=== PATIENT | male | born 1945 | race Caucasian/White ===

== ENCOUNTER 2024-02-22 19:18 | Emergency (ER) | payer MEDICARE, OTHER, SELFPAY ==
--- NOTE | ~2024-02-22 | CT_ITS ---
EXAMINATION: CT brain wo con DATE: 02/22/2024 20:08 INDICATION: Fall with head injury TECHNIQUE: Computed tomography (CT) of the head was performed without intravenous contrast. Sagittal and coronal reconstructions were performed. The mA was adjusted according to patient size. Iterative reconstruction technique was employed. The dose-length product was 605.33 mGy-cm. COMPARISON: None FINDINGS: Left frontal scalp hematoma. No fracture. No acute intracranial hemorrhage, acute infarction or abnor mal extra axial fluid collection. There is mild scattered white matter hypoattenuation consistent wit h chronic small vessel ischemic disease. Symmetric prominence of the sulci consistent with mild age-a ppropriate diffuse cerebral volume loss. Ventricles are normal and symmetric. No mass/mass effect. Ch anges of bilateral intraocular lens replacement. The orbits and mastoid air cells are normal. Mucosal thickening the bilateral frontal and ethmoid sinuses. IMPRESSION: 1. Age-related changes in the brain. No fracture or acute intracranial process. Reviewed, dictated and finalized at location A.
--- NOTE | ~2024-02-22 | CT_ITS ---
EXAMINATION: CT cervical spine wo con DATE: 02/22/2024 20:08 INDICATION: Fall with head injury TECHNIQUE: Computed tomography (CT) of the cervical spine was performed without intravenous contrast. Automated exposure control and iterative reconstruction technique were employed. The dose-length pro duct was 203.38 mGy-cm. COMPARISON: None FINDINGS: 15 degrees cervical levocurvature. Straightening of the normal cervical lordosis. 3 if a 4 mm anterol isthesis C2 on C3 and 2 mm anterolisthesis C7 on T1. Vertebral body heights are normal. No fracture. Severe atlantoaxial osteoarthritis. Severe disc height loss at C5-C6 and C6-C7. Moderate disc height loss at remaining cervical levels and mild disc height loss at C7-T1. There is mild to moderate centr al canal stenosis resulting from a posterior disc osteophyte complex at T5 C6. Mild central canal randall nosis at a few additional cervical levels. There is bilateral moderate to severe right-side predomina nt cervical uncovertebral and facet osteoarthritis. This contributes to multilevel cervical neural fo raminal stenosis, moderate severity on the right at C3-C4 and mild throughout the remainder of the ce rvical spine. Small amount of atherosclerotic calcific a cyst at the bilateral carotid arteries. Cerv ical soft tissues are unremarkable. Visualized apices of lungs are clear. IMPRESSION: 1. Severe cervical spondylosis with no acute osseous abnormality. Reviewed, dictated and finalized at location A.
[2024-02-22 19:19] VITALS: BP 144/80; PULSE 72; RESP 12; TEMP 37; O2SAT 97
--- NOTE | 2024-02-22 19:45 | ED.FALL ---
HPI - Fall General Chief Complaint: Fall Stated Complaint: UNWITTNESSED GLF, HEMATOMA ABOVE LEFT EYE Time Seen by Provider: 02/22/24 19:30 History of Present Illness HPI Narrative: Patient is an 79-year-old male who presents to the emergency department this evening status post a that was unwitnessed at his [facility]. Patient is normally alert and oriented x1, however, for me today he has been alert and oriented times 2-3. Patient states that he remembers the whole thing was walking was trying to get over a step when he tripped and fell. Patient did fall forward and sustained a left forehead hematoma. Patient denies any loss of consciousness and states that he remembers the full event. Patient ambulates using a cane and/or a walker. He denies any hip pain, any neck or back pain. No additional symptoms or concerns at this time. Review of Systems Review of Systems: All systems are reviewed and are negative unless stated otherwise in the HPI. Exam Narrative: General: Alert, awake, afebrile, in no acute distress. HEENT: PERRL, no rhinorrhea, no post nasal drip, oropharynx clear, left forehead hematoma with overlying abrasion, no raccoon eyes, no de la torre sign. Cardiovascular: Regular rate and rhythm, no murmurs, rubs or gallops, no peripheral edema. Respiratory: Clear to auscultation bilaterally, no tachypnea, no wheezing, no rhonchi, no rubs, no respiratory distress. Abdomen: Soft, nontender, nondistended, no rebound, no guarding, no peritoneal signs. Musculoskeletal: No joint swelling or deformity, normal muscle tone, intact bilateral lower extremity hip flexion and extensions. Back: No midline tenderness to palpation over the cervical, thoracic or lumbar spine, no step-offs or deformities. Skin: No rashes or petechia, no signs of infection. Psychiatric: Alert and oriented, normal behavior and judgment for situation. Neurological: Alert and oriented to person, place, and time. Follows all commands. No focal deficits, speech is clear and fluent. Course Vital Signs Vital signs: Vital Signs Temperature 98.6 F 02/22/24 19:19 Pulse Rate 72 02/22/24 19:19 Respiratory Rate 12 02/22/24 19:19 Blood Pressure 144/80 H 02/22/24 19:19 Pulse Oximetry 97 02/22/24 19:19 Oxygen Delivery Room Air 02/22/24 19:19 Temperature 98.6 F 02/22/24 19:19 Pulse Rate 72 02/22/24 19:19 Respiratory Rate 12 02/22/24 19:19 Blood Pressure 144/80 H 02/22/24 19:19 Pulse Oximetry 97 02/22/24 19:19 Oxygen Delivery Room Air 02/22/24 19:19 MDM - Fall MDM Narrative Medical decision making narrative: The patient was evaluated by myself in the emergency department. History is obtained from patient who is an independent historian and physical exam was performed. External medical records were reviewed at this time. Imaging studies obtained included CT brain cervical spine without IV contrast which was independently interpreted by me revealing no acute process, which is pending final radiology interpretation. Differential diagnosis considerations include fractures, dislocations and intracranial hemorrhage. Comorbidities impacting this visit include none. I have evaluated and discussed social determinants of health with the patient that could potentially impact subsequent diagnosis and treatment plans. On repeat assessment of the patient, reevaluation revealed that the patient is doing well and is in no acute distress. Patient symptoms have remained stable since he arrived to our emergency department. Repeat vital signs were all reviewed and noted to be stable. Differential diagnosis and treatment plan were discussed with the patient at bedside. Patient agrees with discussion and after shared medical decision making agrees with discharge. All questions were answered to the patient's satisfaction. Patient will follow up with his PCP in 3-5 days. Patient was provided with strict return precautions and instructed to
[2024-02-22 21:23] VITALS: BP 128/70; PULSE 71; RESP 16; O2SAT 97
[2024-02-22 23:19] VITALS: BP 120/74; PULSE 63; RESP 14; O2SAT 96
== END 2024-02-23 00:10 ==
PROVIDERS: Emergency Provider Emergency Medicine
DX: S09.90XA Unspecified injury of head, initial encounter (principal); W18.30XA Fall on same level, unspecified, initial encounter
CPT/HCPCS: 70450; 72125; 99284

== ENCOUNTER 2024-02-25 15:10 | Emergency (ER) | payer MEDICARE, OTHER, SELFPAY ==
--- NOTE | ~2024-02-25 | CT_ITS ---
EXAMINATION: CT brain wo con DATE: 02/25/2024 17:07 INDICATION: Mental status change TECHNIQUE: Computed tomography (CT) of the head was performed without intravenous contrast. Sagittal and coronal reconstructions were performed. The mA was adjusted according to patient size. Iterative reconstruction technique was employed. The dose-length product was 605.33 mGy-cm. COMPARISON: 02/22/2024 FINDINGS: The prior small left frontal scalp hematoma has decreased in size and also appears to have shifted sl ightly more caudally along the bridge of the nose. No fracture. No acute intracranial hemorrhage, acu te infarction or abnormal extra axial fluid collection. There is mild scattered white matter hypoatte nuation consistent with chronic small vessel ischemic disease. Symmetric prominence of the sulci cons istent with mild age-appropriate diffuse cerebral volume loss. Ventricles are normal and symmetric. N o mass/mass effect. Changes of bilateral intraocular lens replacement. The orbits and mastoid air shamar ls are normal. Mucosal thickening the bilateral frontal and ethmoid sinuses. IMPRESSION: 1. No acute intracranial process. 2. Age-related changes including mild diffuse volume loss and mild scattered white matter hypoattenua tion consistent with chronic small vessel ischemic disease. Reviewed, dictated and finalized at location A. IMPRESSION: 1. No acute intracranial process. 2. Age-related changes including mild diffuse volume loss and mild scattered wh ite matter hypoattenuation consistent with chronic small vessel ischemic diseas e.
[2024-02-25 15:07] VITALS: BP 107/70; PULSE 72; RESP 20; TEMP 37.2; O2SAT 96
[2024-02-25 16:27] LABS: Basophils Percent Auto 0.4 % (0.2-1.2); Eosinophils Percent Auto 0.4 % (0-4.4); Hematocrit 36.1 % (42.0-52.0); Hemoglobin 11.9 g/dL (14.0-18.0); Immature Granulocyte Absolute 0.03 K/mm3 (0.00-0.031); Immature Granulocyte Percent A 0.4 % (0-0.5); Lymphocytes Absolute Auto 0.79 K/mm3 (0.9-3.2); Lymphocytes Percent Auto 9.5 % (18.3-44.2); Mean Corpuscular Hemoglobin 31.6 pg (26-34); Mean Platelet Volume 9.8 fl (7.4-10.4); Monocytes Absolute Auto 0.9 K/mm3 (0.1-0.6); Monocytes Percent Auto 10.7 % (2.6-8.5); Neutrophils Absolute Auto 6.6 K/mm3 (1.3-6.7); Neutrophils Percent Auto 78.6 % (45.5-73.1); Platelet Count Result 206 k/mm3 (150-375); Red Blood Count 3.76 M/mm3 (4.6-6.20); Red Cell Distribution Width 13.7 % (11.5-14.5); White Blood Count 8.3 K/mm3 (4.5-10.0)
[2024-02-25 16:30] VITALS: BP 135/70; PULSE 57; RESP 15; O2SAT 99
[2024-02-25 16:37] LABS: INR 1.1; Prothrombin Time 14.2 Seconds (11.1-14.7)
[2024-02-25 16:38] LABS: Appearance Urine Clear (Clear); Bacteria Urine None Seen /hpf; Bilirubin Urine Negative (Negative); Blood Urine 2+ (Negative); Color Urine Dark Yellow (Yellow); Glucose Urine UA Negative (Negative); Ketones Urine 1+ mg/dL (Negative); Leukocyte Esterase Ur Negative LEU/UL (Negative); Need Manual Microscopic Reviewed; Nitrate Urine Negative (Negative); Non Pathogenic Casts 0-2; Protein Urine 1+ mg/dL (Negative); RBC Urine 51-100 /hpf (0-2); Squamous Epithelial Cell Urine None Seen /hpf (Few); WBC Urine 0-5 /hpf (0-3); pH Urine 5.5 (5.0-9.0)
[2024-02-25 16:38] LABS: Alanine Aminotransferase 13 U/L (6-50); Alkaline Phosphatase 65 U/L (38-126); Anion Gap 6 mmol/L (4-12); Aspartate Amino Transferase 41 U/L (17-59); Bilirubin,Total 1.1 mg/dL (0.2-1.3); Blood Urea Nitrogen 29 mg/dL (9-20); Calcium 9.1 mg/dL (8.4-10.2); Carbon Dioxide 28 mmol/L (22-30); Chloride 108 mmol/L (98-107); Estimated Glomerular Filt Rate > 60; Glucose 119 mg/dL (65-110); Potassium 3.3 mmol/L (3.4-5.0); Sodium 142 mmol/L (137-145)
[2024-02-25 16:39] LABS: Add Urine Microscopic? YES; Specific Grav Ur 1.033 (1.001-1.035)
--- NOTE | 2024-02-25 17:34 | ED.AMS ---
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 As per the sister patient was admitted to memory care center 5 days ago since stand he has been progressively declining. He well at the [facility] on the same night was brought to the ER had a CT scan however since this morning the nurse who is taking care of for told the family that his heart rate was high and he has been hallucinating. Sister also mention from the time he was admitted to the facility he has progressive decline in his physical condition he is no longer able to walk without falls. Not much of history can be obtained from the patient. MD complaint: altered mental status Timing confirmed by: family member Severity: mild Context: other (Dementia) Review of Systems Review of Systems: ROS unobtainable: Yes unobtainable due to medical condition Exam Narrative: GENERAL: ill-appearing, well-nourished, and in no acute distress. HEAD: Normocephalic, atraumatic. Or laceration on the forehead EYES: PERRLA ENT: Nares clear, no rhinorrhea or epistaxis. Mucous membranes moist. NECK: Supple. CHEST: Clear to auscultation. No respiratory distress. HEART: Regular rate and rhythm. No murmur heard. Normal peripheral pulses. ABDOMEN: Soft, nontender, nondistended, normal active bowel sounds. EXTREMITIES: Normal range of motion. No edema. SKIN: Warm, dry, no rash. NEURO: No focal deficits. Alert . PSYCH: Normal mood and affect. Course Course Emergency Course: I had a long discussion with the sister was at bedside about his lab work, CT scan. All boys declined most likely is from dementia. Vital Signs Vital signs: Vital Signs Temperature 37.2 C 02/25/24 15:07 Pulse Rate 72 02/25/24 15:07 Respiratory Rate 20 02/25/24 15:07 Blood Pressure 107/70 02/25/24 15:07 Pulse Oximetry 96 02/25/24 15:07 Oxygen Delivery Room Air 02/25/24 15:07 Temperature 37.2 C 02/25/24 15:07 Pulse Rate 57 L 02/25/24 16:30 Respiratory Rate 15 02/25/24 16:30 Blood Pressure 135/70 02/25/24 16:30 Pulse Oximetry 99 02/25/24 16:30 Oxygen Delivery Room Air 02/25/24 15:43 MDM - Altered Mental Status Differential Diagnosis Differential diagnosis: Likely altered mental status, dementia, hyponatremia and subarachnoid hemorrhage Medical Records Attestation: I reviewed the patient's medical records. Lab Data Attestation: I reviewed the patient's lab results. 02/25/24 16:13 02/25/24 16:13 Labs: Lab Results 02/25/24 02/25/24 Range/Units 16:13 16:16 WBC 8.3 (4.5-10.0) K/mm3 RBC 3.76 L (4.6-6.20) M/mm3 Hgb 11.9 L (14.0-18.0) g/dL Hct 36.1 L (42.0-52.0) % MCV 96.0 (80-100) fl MCH 31.6 (26-34) pg MCHC 33.0 (32-36) g/dl RDW 13.7 (11.5-14.5) % Plt Count 206 (150-375) k/mm3 MPV 9.8 (7.4-10.4) fl Immature Gran % (Auto) 0.4 (0-0.5) % Neut % (Auto) 78.6 H (45.5-73.1) % Lymph % (Auto) 9.5 L (18.3-44.2) % [place] % (Auto) 10.7 H (2.6-8.5) % Eos % (Auto) 0.4 (0-4.4) % Baso % (Auto) 0.4 (0.2-1.2) % Lymph # (Auto) 0.79 L (0.9-3.2) K/mm3 [place] # (Auto) 0.9 H (0.1-0.6) K/mm3 Eos # (Auto) 0.0 (0-0.3) K/mm3 Baso # (Auto) 0.0 (0.0-0.1) K/mm3 Abs Immat Gran (auto) 0.03 (0.00-0.031) K/mm3 Absolute Neuts (auto) 6.6 (1.3-6.7) K/mm3 Absolute Nucleated RBC 0.000 (0.0-0.012) K/mm3 Nucleated RBC % 0.0 (0.0-0.2) % PT 14.2 (11.1-14.7) Seconds INR 1.1 Sodium 142 (137-145) mmol/L Potassium 3.3 L (3.4-5.0) mmol/L Chloride 108 H (98-107) mmol/L Carbon Dioxide 28 (22-30) mmol/L Anion Gap 6 (4-12)
[2024-02-25 17:39] VITALS: BP 125/63; PULSE 54; RESP 16; O2SAT 98
[2024-02-25 17:49] VITALS: BP 125/82; PULSE 54; RESP 18; O2SAT 98
== END 2024-02-25 18:39 ==
PROVIDERS: Emergency Provider Family Medicine
DX: R41.82 Altered mental status, unspecified (principal); F03.90 Unspecified dementia, unspecified severity, without behavioral disturbance, psychotic disturbance, mood disturbance, and anxiety
CPT/HCPCS: 36415; 70450; 80053; 81001; 83605; 85025; 85610; 99284

== ENCOUNTER 2024-03-21 06:57 | Emergency (ER) | payer MEDICARE, SELFPAY ==
[2024-03-21 06:59] VITALS: BP 148/89; PULSE 69; RESP 17; TEMP 37.1; O2SAT 100
[2024-03-21 07:03] VITALS: PULSE 72
--- NOTE | 2024-03-21 07:23 | ED.GENADULT ---
HPI - General Adult General Chief complaint: Unspecified Stated complaint: NOT SLEEPING History of Present Illness HPI narrative: 79-year-old male present to the ED for evaluation for impaired sleeping. Patient states he has had longstanding issues with poor sleeping. Patient was recently started on trazodone to help with this and has not been helping. Patient denies any other complaints. Related Data Allergies Allergy/AdvReac Type Severity Reaction Status Date / Time No Known Allergies Allergy Verified 03/21/24 07:07 Review of Systems Review of Systems: All systems reviewed & are unremarkable except as noted in HPI and below Exam Narrative: APPEARANCE: Well appearing, no pain, no distress, well-nourished. HEAD: normocephalic, atraumatic. EYES: PERRLA/EOMI, conjunctivae clear. NOSE: Normal no drainage EARS:TMS clear with good light reflex. THROAT: Pharynx clear, no exudate. NECK: Supple. No adenopathy, no masses. RESPIRATORY: Airway patent, respirations nonlabored. Clear to auscultation bilaterally, no rales, rhonchi, wheezing. CARDIOVASCULAR: Regular rate and rhythm without murmurs rubs or gallops. ABDOMINAL: Soft, nontender, nondistended, normal bowel sounds MUSCULOSKELETAL: Moves all extremities. Strength/ROM intact, No edema, No calf tenderness. NEURO: Alert. Cranial nerves II through XII intact. Grossly intact SKIN: Multiple abrasions Course Course Emergency Course: Patient was discharged back to his care facility. Vital Signs Vital signs: Vital Signs Temperature 98.8 F 03/21/24 06:59 Pulse Rate 69 03/21/24 06:59 Respiratory Rate 17 03/21/24 06:59 Blood Pressure 148/89 H 03/21/24 06:59 Pulse Oximetry 100 03/21/24 06:59 Oxygen Delivery Room Air 03/21/24 06:59 Temperature 98.8 F 03/21/24 06:59 Pulse Rate 71 03/21/24 12:10 Respiratory Rate 18 03/21/24 12:10 Blood Pressure 186/79 H 03/21/24 12:10 Pulse Oximetry 96 03/21/24 12:10 Oxygen Delivery Room Air 03/21/24 06:59 Medical Decision Making [facility] Narrative Medical decision making narrative: 79-year-old male presenting to the emergency department for evaluation for inability to sleep. Patient is afebrile with no leukocytosis and a stable hemoglobin of 12.6. No acute abnormalities of the patient's CMP of normal lactic acid. UA does have some markers for urinary tract infection. Patient will have a urine culture ordered and patient will be treated with antibiotics for possible underlying urinary tract infection. Patient was encouraged to have close follow-up with his primary care physician and with Neurology regarding his difficulty sleeping. Patient did sleep while in emergency department. Differential Diagnosis Differential Diagnosis: UTI, COVID, RSV, influenza Vital Signs Vital Signs: Vital Signs Temperature 98.8 F 03/21/24 06:59 Pulse Rate 69 03/21/24 06:59 Respiratory Rate 17 03/21/24 06:59 Blood Pressure 148/89 H 03/21/24 06:59 Pulse Oximetry 100 03/21/24 06:59 Oxygen Delivery Room Air 03/21/24 06:59 Temperature 98.8 F 03/21/24 06:59 Pulse Rate 71 03/21/24 12:10 Respiratory Rate 18 03/21/24 12:10 Blood Pressure 186/79 H 03/21/24 12:10 Pulse Oximetry 96 03/21/24 12:10 Oxygen Delivery Room Air 03/21/24 06:59 Lab Data Lab results reviewed: Yes I reviewed the patient's lab results. 03/21/24 07:35 03/21/24 07:35 Labs: Lab Results 03/21/24 03/21/24 Range/Units 07:35 07:52 WBC 7.4 (4.5-10.0) K/mm3 RBC 3.96 L (4.6-6.20) M/mm3 Hgb 12.6 L (14.0-18.0) g/dL Hct 38.8 L (42.0-52.0) % MCV 98.0 (80-100) fl MCH 31.8 (26-34) pg MCHC 32.5 (32-36) g/dl RDW 13.9 (11.5-14.5) % Plt Count 232 (150-375) k/mm3 MPV 9.2 (7.4-10.4) fl Immature Gran % (Auto) 0.3 (0-0.5) % Neut % (Auto) 74.4 H (45.5-73.1) % Lymph % (Auto) 12.5 L (18.3-44.2) % [place] % (Auto) 11.5 H (2.6-8.5) % E
[2024-03-21 07:42] LABS: Basophils Percent Auto 0.5 % (0.2-1.2); Eosinophils Absolute Auto 0.1 K/mm3 (0-0.3); Eosinophils Percent Auto 0.8 % (0-4.4); Hematocrit 38.8 % (42.0-52.0); Hemoglobin 12.6 g/dL (14.0-18.0); Immature Granulocyte Absolute 0.02 K/mm3 (0.00-0.031); Immature Granulocyte Percent A 0.3 % (0-0.5); Lymphocytes Absolute Auto 0.92 K/mm3 (0.9-3.2); Lymphocytes Percent Auto 12.5 % (18.3-44.2); Mean Corpuscular HGB Conc 32.5 g/dl (32-36); Mean Corpuscular Hemoglobin 31.8 pg (26-34); Mean Platelet Volume 9.2 fl (7.4-10.4); Monocytes Absolute Auto 0.9 K/mm3 (0.1-0.6); Monocytes Percent Auto 11.5 % (2.6-8.5); Neutrophils Absolute Auto 5.5 K/mm3 (1.3-6.7); Neutrophils Percent Auto 74.4 % (45.5-73.1); Platelet Count Result 232 k/mm3 (150-375); Red Blood Count 3.96 M/mm3 (4.6-6.20); Red Cell Distribution Width 13.9 % (11.5-14.5); White Blood Count 7.4 K/mm3 (4.5-10.0)
[2024-03-21 07:56] LABS: Lactic Acid Reflex 0.7 mmol/L (0.7-2.0)
[2024-03-21 07:58] LABS: Alanine Aminotransferase 13 U/L (6-50); Alkaline Phosphatase 64 U/L (38-126); Anion Gap 7 mmol/L (4-12); Aspartate Amino Transferase 28 U/L (17-59); Blood Urea Nitrogen 23 mg/dL (9-20); Carbon Dioxide 27 mmol/L (22-30); Chloride 110 mmol/L (98-107); Estimated CRCL calculation 68 ml/min; Estimated Glomerular Filt Rate > 60; Glucose 96 mg/dL (65-110); Potassium 3.7 mmol/L (3.4-5.0); Sodium 144 mmol/L (137-145)
[2024-03-21 08:15] VITALS: BP 147/76; PULSE 86; RESP 17; O2SAT 99
[2024-03-21 08:28] LABS: Appearance Urine Clear (Clear); Bacteria Urine None Seen /hpf; Bilirubin Urine Negative (Negative); Blood Urine 1+ (Negative); Color Urine Yellow (Yellow); Glucose Urine UA Negative (Negative); Ketones Urine Trace mg/dL (Negative); Leukocyte Esterase Ur Trace LEU/UL (Negative); Need Manual Microscopic Reviewed; Nitrate Urine Negative (Negative); Protein Urine Trace mg/dL (Negative); Specific Grav Ur 1.024 (1.001-1.035); Squamous Epithelial Cell Urine None Seen /hpf (Few)
[2024-03-21 08:32] LABS: Add Urine Microscopic? YES
--- NOTE | 2024-03-21 09:01 | PC.NURSE ---
0900 attempted to call report to [facility].
--- NOTE | 2024-03-21 09:13 | PC.NURSE ---
0910 Report called to ROD Osman at [facility].
[2024-03-21 12:10] VITALS: BP 186/79; PULSE 71; RESP 18; O2SAT 96
== END 2024-03-21 12:13 ==
PROVIDERS: Emergency Provider Emergency Medicine
DX: G47.9 Sleep disorder, unspecified (principal); N39.0 Urinary tract infection, site not specified; G31.83 Neurocognitive disorder with Lewy bodies; F02.80 Dementia in other diseases classified elsewhere, unspecified severity, without behavioral disturbance, psychotic disturbance, mood disturbance, and anxiety
CPT/HCPCS: 36415; 80053; 81001; 83605; 85025; 87086; 87088; 96365; 99284; J0696

== ENCOUNTER 2024-03-21 20:14 | Emergency (ER) | payer MEDICARE, OTHER, SELFPAY ==
[2024-03-21] VITALS (12 sets, daily range): BP systolic 119–128; BP diastolic 57–93; PULSE 62–82; RESP 12–21; TEMP 37.5; O2SAT 95–100
--- NOTE | ~2024-03-21 | XR_ITS ---
EXAMINATION: XR chest 1V portable Exam Date/Time: 03/21/2024 20:40 CDT HISTORY: fever WITH UTI Comparison: None. RESULT: Lines, tubes, and devices: Thin wires over the upper chest possibly representing a abandoned epicard ial wires. Lungs and pleura: Senescent change, otherwise clear. Cardiomediastinal silhouette: Atherosclerotic arch calcification. Calcified nodes. Other: No acute osseous or upper abdominal finding. IMPRESSION: No acute cardiopulmonary process. Reviewed, dictated and finalized at location K.
[2024-03-21] MEDS: SODIUM CHLORIDE 0.9% IV 1,000 ML 150 ML IV CONT (20:48)
--- NOTE | 2024-03-21 20:51 | PC.NURSE ---
vrbo ivp ativan 0.5mg x 1
[2024-03-21 20:52] LABS: Basophils Percent Auto 0.3 % (0.2-1.2); Eosinophils Percent Auto 0.3 % (0-4.4); Hematocrit 36.2 % (42.0-52.0); Hemoglobin 12.1 g/dL (14.0-18.0); Immature Granulocyte Absolute 0.02 K/mm3 (0.00-0.031); Immature Granulocyte Percent A 0.3 % (0-0.5); Lymphocytes Absolute Auto 0.68 K/mm3 (0.9-3.2); Lymphocytes Percent Auto 10.1 % (18.3-44.2); Mean Corpuscular HGB Conc 33.4 g/dl (32-36); Mean Corpuscular Volume 95.8 fl (80-100); Mean Platelet Volume 9.4 fl (7.4-10.4); Monocytes Absolute Auto 0.7 K/mm3 (0.1-0.6); Neutrophils Absolute Auto 5.2 K/mm3 (1.3-6.7); Platelet Count Result 234 k/mm3 (150-375); Red Blood Count 3.78 M/mm3 (4.6-6.20); White Blood Count 6.7 K/mm3 (4.5-10.0)
[2024-03-21] MEDS: LORazepam INJ (*CRX) 2 MG/ML VIAL 0.5 MG IV PUSH (20:53)
[2024-03-21 21:01] LABS: Alanine Aminotransferase 14 U/L (6-50); Albumin Level 4.1 g/dL (3.5-5.1); Alkaline Phosphatase 65 U/L (38-126); Anion Gap 9 mmol/L (4-12); Aspartate Amino Transferase 29 U/L (17-59); Blood Urea Nitrogen 22 mg/dL (9-20); Calcium 9.2 mg/dL (8.4-10.2); Carbon Dioxide 26 mmol/L (22-30); Chloride 109 mmol/L (98-107); Estimated CRCL calculation 69 ml/min; Estimated Glomerular Filt Rate > 60; Glucose 103 mg/dL (65-110); Potassium 3.3 mmol/L (3.4-5.0); Sodium 144 mmol/L (137-145)
--- NOTE | 2024-03-21 21:39 | ED.FEVER ---
HPI - Fever General Chief Complaint: Fever Stated Complaint: dx UTI 03/21, NOW SEPTIC PER [facility] Time Seen by Provider: 03/21/24 20:30 Source: EMS and RN notes reviewed Mode of arrival: EMS Limitations: dementia History of Present Illness HPI Narrative: 79-year-old with a history of dementia [facility] with complaints of fever of 101. Patient was seen earlier discharge and discharged gastric urinary tract infection he was started on Keflex. Not much of history can be obtained from the patient secondary to his dementia. MD elicited complaint: fever Relieving factors: nothing Related Data Allergies Allergy/AdvReac Type Severity Reaction Status Date / Time No Known Allergies Allergy Verified 03/21/24 07:07 Review of Systems Review of Systems: ROS unobtainable: Yes unobtainable due to mental status Exam Narrative: GENERAL: well-nourished, and in no acute distress. HEAD: Normocephalic, atraumatic. EYES: PERRLA and EOMI. ENT: Nares clear, no rhinorrhea or epistaxis. Mucous membranes moist. NECK: Supple. CHEST: Clear to auscultation. No respiratory distress. HEART: Regular rate and rhythm. No murmur heard. Normal peripheral pulses. ABDOMEN: Soft, nontender, nondistended, normal active bowel sounds. EXTREMITIES: Normal range of motion. No edema. SKIN: Warm, dry, no rash. NEURO: No focal deficits. Alert and oriented X1. PSYCH: Normal mood and affect. Course Course Emergency Course: He Vital Signs Vital signs: Vital Signs Temperature 37.5 C 03/21/24 20:15 Pulse Rate 82 03/21/24 20:15 Respiratory Rate 19 03/21/24 20:15 Blood Pressure 127/57 L 03/21/24 20:15 Pulse Oximetry 99 03/21/24 20:15 Oxygen Delivery Room Air 03/21/24 20:15 Temperature 37.5 C 03/21/24 20:15 Pulse Rate 82 03/21/24 20:15 Respiratory Rate 19 03/21/24 20:15 Blood Pressure 127/57 L 03/21/24 20:15 Pulse Oximetry 99 03/21/24 20:15 Oxygen Delivery Room Air 03/21/24 20:15 MDM - Fever Lab Data 03/21/24 20:40 03/21/24 20:40 Labs: Lab Results 06/18/24 Range/Units 20:40 WBC 6.7 (4.5-10.0) K/mm3 RBC 3.78 L (4.6-6.20) M/mm3 Hgb 12.1 L (14.0-18.0) g/dL Hct 36.2 L (42.0-52.0) % MCV 95.8 (80-100) fl MCH 32.0 (26-34) pg MCHC 33.4 (32-36) g/dl RDW 14.0 (11.5-14.5) % Plt Count 234 (150-375) k/mm3 MPV 9.4 (7.4-10.4) fl Immature Gran % (Auto) 0.3 (0-0.5) % Neut % (Auto) 78.0 H (45.5-73.1) % Lymph % (Auto) 10.1 L (18.3-44.2) % [place] % (Auto) 11.0 H (2.6-8.5) % Eos % (Auto) 0.3 (0-4.4) % Baso % (Auto) 0.3 (0.2-1.2) % Lymph # (Auto) 0.68 L (0.9-3.2) K/mm3 [place] # (Auto) 0.7 H (0.1-0.6) K/mm3 Eos # (Auto) 0.0 (0-0.3) K/mm3 Baso # (Auto) 0.0 (0.0-0.1) K/mm3 Abs Immat Gran (auto) 0.02 (0.00-0.031) K/mm3 Absolute Neuts (auto) 5.2 (1.3-6.7) K/mm3 Absolute Nucleated RBC 0.000 (0.0-0.012) K/mm3 Nucleated RBC % 0.0 (0.0-0.2) % Sodium 144 (137-145) mmol/L Potassium 3.3 L (3.4-5.0) mmol/L Chloride 109 H (98-107) mmol/L Carbon Dioxide 26 (22-30) mmol/L Anion Gap 9 (4-12) mmol/L BUN 22 H (9-20) mg/dL Creatinine 0.70 (0.7-1.3) mg/dL Estim Creat Clear Calc 69 ml/min Estimated GFR > 60 (59 - ) Glucose 103 (65-110) mg/dL Lactic Acid 1.0 (0.7-2.0) mmol/L Calcium 9.2 (8.4-10.2) mg/dL Total Bilirubin 1.0 (0.2-1.3) mg/dL AST 29 (17-59) U/L ALT 14 (6-50) U/L Alkaline Phosphatase 65 (38-126) U/L Total Protein 7.0 (6.3-8.2) g/dL Albumin 4.1 (3.5-5.1) g/dL Discharge Plan Discharge Clinical Impression: Fever of unknown origin Patient Disposition: [facility] Condition: Stable Instructions: Antibiotic Form, Fever in Adults (ED) Additional Instructions: continue home medications, follow with the primary doctor Prescriptions: No Action cephalexin 500 mg tablet 500 mg PO Q12H 7 Days Qty: 14 0RF Follow-up
== END 2024-03-21 22:51 ==
PROVIDERS: Emergency Provider Family Medicine
DX: R50.9 Fever, unspecified (principal); N39.0 Urinary tract infection, site not specified; F03.90 Unspecified dementia, unspecified severity, without behavioral disturbance, psychotic disturbance, mood disturbance, and anxiety
CPT/HCPCS: 36415; 71045; 80053; 81001; 83605; 85025; 87040; 87086; 96361; 96365; 96374; 99284; J0696; J2060; J7030

== ENCOUNTER 2024-03-24 16:51 | Inpatient (IN) | payer MEDICARE, OTHER, SELFPAY ==
[2024-03-24] VITALS (17 sets, daily range): BP systolic 102–195; BP diastolic 62–130; PULSE 53–91; RESP 13–26; TEMP 36.3–37; O2SAT 92–100; BMI 18.3
--- NOTE | ~2024-03-24 | CT_ITS ---
CT brain wo con Ordering provider: Adamaris Flores PA-C History: 79 years Male with . AMS . Comparison: February 25, 2024 Technique: CT of the head without contrast. Radiation reduction technique utilized. DLP is 605.33 mGy. FINDINGS: BRAIN PARENCHYMA AND CSF SPACES: Mild leukoaraiosis and diffuse cortical atrophy. Mild atheromatous d isease. Mild ventricular dilatation. No midline shift, mass effect or hemorrhage. The brain parenchy ma and CSF spaces are otherwise normal. VISUALIZED PARANASAL SINUSES: Well aerated. MASTOIDS: Well aerated. BONES: The bones appear intact. SOFT TISSUES: Visualized nasopharynx is normal. Superficial soft tissues are normal. IMPRESSION: No acute intracranial findings. Reviewed, dictated and finalized at location A.
--- NOTE | ~2024-03-24 | XR_ITS ---
XR chest 1V Ordering provider: Adamaris Flores PA-C History: 79 years Male with . AMS . Comparison: None. FINDINGS: MEDIASTINUM: The cardiac silhouette is not enlarged. Prominent left hilum. LUNGS: No effusions or pneumothorax. Opacification in the right upper lobe area is seen which may ind icate early pneumonia. Atelectasis of the right upper lobe is also not excluded. Follow-up advised. OTHER: No free air under the diaphragm. IMPRESSION: Possible early pneumonia in the right upper lobe Versus atelectasis of the right upper lobe. Follow-u p advised. Reviewed, dictated and finalized at location A. IMPRESSION: Possible early pneumonia in the right upper lobe Versus atelectasis of the righ t upper lobe. Follow-up advised.
--- NOTE | 2024-03-24 18:45 | ECG_ITS ---
Test Date: 2024-03-24 19:46:43 Measurements Intervals [place] Rate: 59 P: 64 VT: 152 QRS: 62 QRSD: 88 T: 23 QT: 331 QTc: 328 Interpretive Statements SINUS BRADYCARDIA WITH FREQUENT VENTRICULAR PREMATURE COMPLEXES ANTEROSEPTAL MYOCARDIAL INFARCTION , OF INDETERMINATE AGE [40+ ms Q WAVE IN V1-V4] ABNORMAL ELECTROCARDIOGRAM No previous ECG available for comparison Electronically Signed On 03-25-2024 07:59:47 CDT by Luc Levin M.D.
--- NOTE | 2024-03-24 18:49 | ED.MALEGU ---
HPI - Male Genitourinary General Chief complaint: Urogenital-Male Stated complaint: UTI/fever/rash Time Seen by Provider: 03/24/24 18:00 History of Present Illness HPI Narrative: 79-year-old male with a history of Lewy body dementia and Parkinson's disease presents via EMS from [facility] with his sister, Ngoc, at bedside for concerns for UTI, sepsis and altered mental status. Patient unable to provide history due to mental status. The following history is obtained from [place]. States the patient was placed at [facility] approximately 1 month ago and since then has had steady decline in mental status. He was evaluated our emergency department on 02/25/2024 for altered mental status and decline since being in the [facility]. Patient was then evaluated on 03/21/2024 for impaired sleeping and was found have a urinary tract infection. He was started on Keflex. He then presented later that day for a fever of 101 and was discharged home after lab work obtained which were largely unremarkable. Patient's sister presents today because she states that nursing staff has repeatedly told her that they were concern for sepsis. States they have encountered low-grade fevers, approximately 100.1. She states that she would like to ensure he is not septic. She also states that he does seems to be declining rapidly, specifically over the past month worsening over the past week. He is unable to tell me his name which the patient's sister states has been normal for him within the past month. She also states that the [facility] told her that the patient has developed a rash to his torso. The patient is unable to tell me if this is new or chronic, she states she never sees him w/o a shirt on. unfortunately, patient's / POA is currently hospitalized at another facility for a hip fracture. Patient's sister states that she has stepped in in place of his in the meantime. Related Data Home Medications Medication Instructions Recorded Confirmed B12 2,500 mcg sublingual DAILY 03/24/24 03/24/24 alprazolam 0.125 mg PO BID PRN Anxiety 03/24/24 03/24/24 donepezil 10 mg tablet 10 mg PO HS 03/24/24 03/24/24 escitalopram oxalate 10 mg tablet 5 mg PO DAILY 03/24/24 03/24/24 olmesartan 20 mg tablet 20 mg PO DAILY 03/24/24 03/24/24 rosuvastatin 5 mg tablet 5 mg PO HS 03/24/24 03/24/24 Allergies Allergy/AdvReac Type Severity Reaction Status Date / Time cephalexin [From Keflex] Allergy Mild Rash Verified 03/24/24 23:41 Review of Systems Review of Systems: ROS unobtainable: Yes unobtainable due to mental status PMFSH Past Medical History Medical History (Updated 03/25/24 @ 02:06 by Rebecca Whelan DO) Anxiety B12 deficiency Essential hypertension Histoplasmosis Hyperlipidemia Lewy body dementia OCD (obsessive compulsive disorder) Parkinsons disease Squamous cell carcinoma Surgical History Surgical History (Updated 03/25/24 @ 01:59 by Rebecca Whelan DO) Surgical history unknown Family History Family History Other Family history non-contributory Social History Social History (Updated 03/25/24 @ 02:10 by Rebecca Whelan DO) Social History: Patient is been living at [facility] since February. Prior to that the patient was reportedly at home with his . The patient cannot provide any other history as he is oriented times 0. Per [facility] records patient is full code. Healthcare power of state's attorney: Atiya Bolden () Smoking status: Unknown if ever smoked Alcohol intake: never Substance use: never Spiritual care concerns: No Exam Narrative: GENERAL: elderly male, responsive to verbal stimuli by moaning. Eyes closed at all times. HEAD: Normocephalic, atraumatic. EYES: PERRLA and EOMI. ENT: Nares clear, no rhinorrhea or epistaxis. Mucous membranes moist. NECK: Supple. CHEST: Clear to auscultation. No respiratory distress. HEA
[2024-03-24 19:36] LABS: Basophils Percent Auto 0.3 % (0.2-1.2); Eosinophils Percent Auto 0.5 % (0-4.4); Hemoglobin 12.8 g/dL (14.0-18.0); Immature Granulocyte Absolute 0.02 K/mm3 (0.00-0.031); Immature Granulocyte Percent A 0.3 % (0-0.5); Lymphocytes Absolute Auto 0.46 K/mm3 (0.9-3.2); Lymphocytes Percent Auto 7.4 % (18.3-44.2); Mean Corpuscular HGB Conc 33.7 g/dl (32-36); Mean Corpuscular Hemoglobin 32.4 pg (26-34); Mean Corpuscular Volume 96.2 fl (80-100); Mean Platelet Volume 9.5 fl (7.4-10.4); Monocytes Absolute Auto 0.7 K/mm3 (0.1-0.6); Monocytes Percent Auto 11.7 % (2.6-8.5); Neutrophils Percent Auto 79.8 % (45.5-73.1); Platelet Count Result 222 k/mm3 (150-375); Red Blood Count 3.95 M/mm3 (4.6-6.20); Red Cell Distribution Width 13.9 % (11.5-14.5); White Blood Count 6.2 K/mm3 (4.5-10.0)
[2024-03-24 19:39] LABS: Glucose Point of Care 119 mg/dl (65-105)
[2024-03-24 19:46] LABS: Lactic Acid Reflex 0.7 mmol/L (0.7-2.0)
[2024-03-24 19:50] LABS: Acetaminophen < 10 ug/mL (10-30); Salicylate < 1.0 mg/dL (2-20)
[2024-03-24 19:51] LABS: Alanine Aminotransferase 21 U/L (6-50); Albumin Level 4.2 g/dL (3.5-5.1); Alkaline Phosphatase 65 U/L (38-126); Anion Gap 5 mmol/L (4-12); Aspartate Amino Transferase 49 U/L (17-59); Bilirubin,Total 1.2 mg/dL (0.2-1.3); Blood Urea Nitrogen 25 mg/dL (9-20); Calcium 9.3 mg/dL (8.4-10.2); Carbon Dioxide 30 mmol/L (22-30); Chloride 108 mmol/L (98-107); Estimated CRCL calculation 47 ml/min; Estimated Glomerular Filt Rate > 60; Glucose 114 mg/dL (65-110); Potassium 3.1 mmol/L (3.4-5.0); Sodium 143 mmol/L (137-145)
[2024-03-24 19:56] LABS: Creatine Kinase 497 U/L (55-170)
--- NOTE | 2024-03-24 20:10 | PC.NURSE ---
this rn assumed care of patient. this rn took patient report from ROD Vega
--- NOTE | 2024-03-24 20:19 | PC.NURSE ---
Upon assessment of patient. Patient had diffuse body bruising in multiple stages of healing. There is concern for patient bruising resembling hand prints. this rn hotlined for patient safety.
[2024-03-24 20:22] LABS: Magnesium 2.2 mg/dL (1.6-2.3); Phosphorus 3.4 mg/dL (2.5-4.5)
[2024-03-24 20:33] LABS: Appearance Urine Cloudy (Clear); Bacteria Urine None Seen /hpf; Bilirubin Urine Negative (Negative); Blood Urine 3+ (Negative); Color Urine Yellow (Yellow); Glucose Urine UA Negative (Negative); Ketones Urine 1+ mg/dL (Negative); Leukocyte Esterase Ur Negative LEU/UL (Negative); Need Manual Microscopic Reviewed; Nitrate Urine Negative (Negative); Non Pathogenic Casts 0-2; Protein Urine Trace mg/dL (Negative); RBC Urine >100 /hpf (0-2); Specific Grav Ur 1.021 (1.001-1.035); Squamous Epithelial Cell Urine None Seen /hpf (Few); pH Urine 6.5 (5.0-9.0)
[2024-03-24 20:34] LABS: Add Urine Microscopic? YES
--- NOTE | 2024-03-24 20:36 | PC.NURSE ---
elder abuse hotline refused to take hotline. they recommended making a report to public safety hotline. this rn attempted to make hotline to public safety. they stated they were unable to make the hotline due to the patient being from an assisted living facility and not a [facility]. Hotline stated to call and make report on Wednesday during business hours.
[2024-03-24] MEDS: POTASSIUM CHLORIDE INJ 40 MEQ in SODIUM CHLORIDE 0.9% IV 500 ML 130 MEQ IVPB (21:20)
[2024-03-24] MEDS: SODIUM CHLORIDE 0.9% IV 1,000 ML 999 ML IV CONT (21:21)
[2024-03-24 21:26] LABS: Amphetamine Screen Urine Negative (Negative); Barbiturate Screen Urine Negative (Negative); Benzodiazepines Screen Urine Negative (Negative); Cannabinoid Screen Urine Negative (Negative); Cocaine Screen Urine Negative (Negative); Methadone Screen Urine Negative (Negative); Opiate Screen Urine Negative (Negative); Phencyclidine Screen Urine Negative (Negative)
[2024-03-24 21:33] LABS: Troponin I 0.023 ng/mL (0.000-0.034)
[2024-03-24] MEDS: LORazepam INJ (*CRX) 2 MG/ML VIAL 1 MG IV PUSH (22:06)
--- NOTE | 2024-03-24 22:28 | PC.NURSE ---
pt attempting to get out of bed multiple times. pt shouting at staff, pt hitting staff, pt also pinching and trying to remove iv access. pt unable to be redirected by this rn. sitter was placed at bedside. per edp beth yarbrough ativan to be given iv push. this rn used closed loop communication to confirm 1mg of ativan to be ordered and given to patient.
[2024-03-24] MEDS: levoFLOXacin 750 MG/D5W 150 ML 750 MG/150 ML BAG 100 MG IVPB (22:30)
[2024-03-24 22:54] LABS: Influenza A QL RT-PCR Negative (Negative); Influenza B QL RT-PCR Negative (Negative); SARS-CoV-2 RNA PCR Negative (Negative)
--- NOTE | 2024-03-24 23:30 | ADMGEN ---
This patient, Zachary Bolden, was admitted to Medical Room 243-01. Patient/family oriented to hospital policies and general routines including ID bracelet, bed and alarms, visiting hours, pain management, procedures, bathroom and other care routines, personal items, smoking policy, room service/diet, and visiting hours. Information on how to activate the Rapid Response Team has been discussed. Patient/Family are encouraged to report perceived risks to care and to ask questions if they do not understand what they are told or what they should do.
[2024-03-25 00:07] VITALS: BP 143/69; PULSE 55; RESP 16; TEMP 36.3; O2SAT 100
--- NOTE | 2024-03-25 01:51 | PM.IMHP ---
H&P: HPI History of Present Illness Date/Time: 03/24/24 23:50 Chief Complaint: AMS Narrative: 79-year-old male with a past medical history of essential hypertension, Lewy body dementia, Parkinson's disease and depression with anxiety who presented to ER via EMS due to [facility] 100.1 at the [facility] and recent treatment for UTI. The patient had been evaluated in the ER on the for insomnia. His urine at that time appeared to be consistent with infection so he was discharged on Keflex. Patient's urine culture later came back as multiple distal urethral contaminant. The [facility] sent the patient back to the ER later in the day with a temperature of 101?. He was discharged back to [facility] without further intervention. senior care staff reported to the patient's sister that the patient was having low-grade temperatures of around 100.1 despite being continued on the Keflex. senior care staff told the sister that they wanted him sent in for evaluation of sepsis. Patient was not tachycardic or tachypneic and has not had a white count. Patient's respiratory viral panel was negative. The patient has not been coughing. The patient does not have any evidence of urinary retention. The patient's sister initially presented with the patient and the stated that the patient had been living at home with his but had a significant decline in his status over the last 2 months. Since [facility] the [facility] over the last 3-4 weeks the patient has had progressive decline in his mental status over the last month but with an acute decline in the last week. He has had markedly decreased oral intake. senior care staff had reported to the family that the patient had a rash on his torso. It is unclear when this rash developed possibly after the initiation of Keflex. The patient does have some abrasions to his lower extremities and appears if he may be scratching. He does have scattered areas of the rash on his forearms and legs are also slightly more difficult to delineate.amily in ER staff were ordered about multiple areas of bruising on the patient's extremities that appear to be consistent with finger marked. In the ER the patient did have times of anxiety and agitation where he was pulling at medical equipment and trying to get up, shouting, pinching and hitting staff. Patient did receive 1 mg of IV Ativan. The patient is fidgeting in bed and restless but is not being disruptive with care at the time of my evaluation. Bruising is mostly on the extremities. Attempts were made to make a report to Adult protective Services but staff was told to call back during normal business hours. According to the ER provider report... The patient's is listed as his healthcare power of assistant county attorney and is currently hospitalized in another medical facility for broken hip. The patient's daughter is listed as a secondary contact but the patient's sister was the person who accompanied patient to the ER. ER provider did discuss goals of care discussion with the patient's sister when she was at bedside. The sister did not feel comfortable making decisions regarding goals of care. Review of Systems Review of Systems: ROS unobtainable: Yes unobtainable due to medical condition (dementia) PMFSH Past Medical History Medical History (Updated 03/25/24 @ 02:32 by Rebecca Whelan DO) Anxiety B12 deficiency Essential hypertension Histoplasmosis Hyperlipidemia Lewy body dementia OCD (obsessive compulsive disorder) Parkinsons disease Squamous cell carcinoma Surgical History Surgical History (Updated 03/25/24 @ 01:59 by Rebecca Whelan DO) Surgical history unknown Family History Family History Other Family history non-contributory Social History Social History (Updated 03/25/24 @ 02:10 by Rebecca Whelan DO) Social History: Patient is been living at [facility] since
[2024-03-25] MEDS: SODIUM CHLORIDE 0.9% IV 1,000 ML 100 ML IV CONT (03:31)
[2024-03-25] MEDS: LORazepam INJ (*CRX) 2 MG/ML VIAL 0.5 MG IV PUSH (03:34)
[2024-03-25 04:58] LABS: Basophils Percent Auto 0.4 % (0.2-1.2); Eosinophils Absolute Auto 0.1 K/mm3 (0-0.3); Hematocrit 35.8 % (42.0-52.0); Hemoglobin 11.5 g/dL (14.0-18.0); Immature Granulocyte Absolute 0.02 K/mm3 (0.00-0.031); Immature Granulocyte Percent A 0.4 % (0-0.5); Lymphocytes Absolute Auto 0.63 K/mm3 (0.9-3.2); Lymphocytes Percent Auto 12.4 % (18.3-44.2); Mean Corpuscular HGB Conc 32.1 g/dl (32-36); Mean Corpuscular Hemoglobin 31.8 pg (26-34); Mean Corpuscular Volume 98.9 fl (80-100); Mean Platelet Volume 9.8 fl (7.4-10.4); Monocytes Absolute Auto 0.8 K/mm3 (0.1-0.6); Monocytes Percent Auto 14.8 % (2.6-8.5); Neutrophils Absolute Auto 3.6 K/mm3 (1.3-6.7); Platelet Count Result 200 k/mm3 (150-375); Red Blood Count 3.62 M/mm3 (4.6-6.20); Red Cell Distribution Width 13.9 % (11.5-14.5); White Blood Count 5.1 K/mm3 (4.5-10.0)
[2024-03-25 05:08] LABS: Anion Gap 3 mmol/L (4-12); Blood Urea Nitrogen 20 mg/dL (9-20); Calcium 8.6 mg/dL (8.4-10.2); Carbon Dioxide 29 mmol/L (22-30); Chloride 112 mmol/L (98-107); Estimated CRCL calculation 63 ml/min; Estimated Glomerular Filt Rate > 60; Glucose 91 mg/dL (65-110); Potassium 3.6 mmol/L (3.4-5.0); Sodium 144 mmol/L (137-145)
[2024-03-25 05:09] VITALS: BP 142/81; PULSE 60; RESP 17; TEMP 36.6; O2SAT 98
--- NOTE | 2024-03-25 07:57 | PM.IMPN ---
Progress Note: A&P Assessment and Plan (1) Dementia: Qualifiers: Dementia behavioral or psychological symptom: without behavioral, psychotic, or mood disturbance or anxiety Dementia severity: severe Dementia type: Lewy body dementia Qualified Code(s): G31.83 - Neurocognitive disorder with Lewy bodies; F02.C0 - Dementia in other diseases classified elsewhere, severe, without behavioral disturbance, psychotic disturbance, mood disturbance, and anxiety Code(s): F03.90 - Unspecified dementia, unspecified severity, without behavioral disturbance, psychotic disturbance, mood disturbance, and anxiety Status: Acute (2) Altered mental status: Qualifiers: Altered mental status type: unspecified Qualified Code(s): R41.82 - Altered mental status, unspecified Code(s): R41.82 - Altered mental status, unspecified Status: Acute (3) Pruritic rash: Code(s): L28.2 - Other prurigo Status: Acute (4) Pneumonia: Qualifiers: Laterality: right Lung location: upper lobe of lung Pneumonia type: due to unspecified organism Qualified Code(s): J18.9 - Pneumonia, unspecified organism Code(s): J18.9 - Pneumonia, unspecified organism Status: Acute (5) Parkinsons disease: Qualifiers: Dyskinesia presence: with dyskinesia Fluctuating manifestations: unspecified whether manifestations fluctuate Qualified Code(s): G20.B1 - Parkinson's disease with dyskinesia, without mention of fluctuations Code(s): G20.A1 - Parkinson's disease without dyskinesia, without mention of fluctuations Status: Acute (6) Essential hypertension: Code(s): I10 - Essential (primary) hypertension Status: Acute Plan 79-year-old male with a past medical history of essential hypertension, Lewy body dementia, Parkinson's disease and depression with anxiety who [facility] ER [facility]. The patient had been evaluated in the ER on the for insomnia. Acute encephalopathy and delirium Patient does have Lewy by mention has been demonstrating behaviors with [facility] staff and being uncooperative. Currently he not causing over disruption but is restless. Patient has advanced dementia, but the patient was found confused worse than baseline Possible acute encephalopathy superimposed with dementia, resulting from pneumonia, UTI, and dehydration, elevated BUN creatinine ratio 25/1 POA continue the patient's home Aricept and SSRI Treat underlying disease Neuro check Consult PT OT client care consultant for evaluation and assisting placement Right lower lobe pneumonia X-ray showed right upper lobe pneumonia Received Levaquin IV, continue Levaquin Add doxy 100 mg q.12 hours IV Follow MRSA screening O2 therapy as needed to keep pulse ox above 92 UTI UA shows pyuria, and hematuria, negative nitrate Continue Levaquin IV Follow-up urine culture blood culture Dehydration Received normal saline bolus in the ED Continue [id number] saline IV 100 mL/hour Hyperlipidemia Continue Crestor 5 mg daily p.o. Subjective Date/time seen: 03/25/24 07:57 Interval history: I saw examined patient, patient is confused, no obvious distress, labs reviewed, patient is afebrile, blood pressure stable, Exam Narrative: GENERAL: Pleasant, in no acute distress. Well-nourished. - EYES: EOMI. Anicteric. - HENT: Dry mucous membranes. - LUNGS: Clear to auscultation bilaterally, no wheezing, rhonchi, or rales. - CARDIOVASCULAR: Regular rate and rhythm. No murmur. No JVD. - ABDOMEN: Soft, non-tender and non-distended. No palpable masses. - EXTREMITIES: No edema. Peripheral pulses 2+. Non-tender. - NEUROLOGIC: No focal neurological deficits. CN II-XII grossly intact. - PSYCHIATRIC: Awake, not oriented x 3. Moving all extremities - SKIN: No rashes or lesions. Warm. - LYMPH: No cervical lymphadenopathy.
[2024-03-25 09:13] VITALS: BP 154/84; PULSE 62; RESP 16; O2SAT 98
[2024-03-25] MEDS: FOLIC ACID 1 MG/0.2 ML INJ IV PUSH (09:14)
[2024-03-25] MEDS: HEPARIN SODIUM 5,000 UNITS/ML VIAL 5000 UNITS SUB-Q ×2 (09:14→21:38)
[2024-03-25] MEDS: THIAMINE HCL 200 MG/2 ML VIAL 100 MG IV PUSH (09:14)
[2024-03-25] MEDS: DEXTROSE 5%/0.9% SOD CHL 1,000 ML 100 ML IV CONT ×2 (09:14→20:04)
[2024-03-25] MEDS: ALPRAZolam (*CRX) 0.125 MG TABLET PO ×2 (09:22→18:51)
[2024-03-25] MEDS: OLMESARTAN MEDOXOMIL 20 MG TABLET PO (09:36)
[2024-03-25] MEDS: CYANOCOBALAMIN 1,000 MCG TABLET 2000 MCG PO (09:37)
[2024-03-25] MEDS: ESCITALOPRAM OXALATE 5 MG TABLET PO (09:38)
[2024-03-25 14:00] VITALS: BP 147/70; PULSE 56; RESP 16; TEMP 36.6; O2SAT 98
[2024-03-25 20:22] VITALS: BP 148/89; PULSE 63; RESP 16; TEMP 36.6; O2SAT 100
[2024-03-25] MEDS: ROSUVASTATIN 5 MG TABLET PO (21:38)
[2024-03-26] MEDS: LORazepam INJ (*CRX) 2 MG/ML VIAL 0.5 MG IV PUSH (01:09)
[2024-03-26 05:37] VITALS: BP 162/89; PULSE 63; RESP 16; TEMP 36.6; O2SAT 99
[2024-03-26 09:20] VITALS: BP 137/83; PULSE 70; RESP 16; O2SAT 99
[2024-03-26] MEDS: ESCITALOPRAM OXALATE 5 MG TABLET PO (09:21)
[2024-03-26] MEDS: OLMESARTAN MEDOXOMIL 20 MG TABLET PO (09:21)
[2024-03-26] MEDS: ALPRAZolam (*CRX) 0.125 MG TABLET PO ×2 (09:22→17:41)
[2024-03-26] MEDS: HEPARIN SODIUM 5,000 UNITS/ML VIAL 5000 UNITS SUB-Q ×2 (09:22→20:37)
[2024-03-26] MEDS: FOLIC ACID 1 MG/0.2 ML INJ IV PUSH (09:22)
[2024-03-26] MEDS: THIAMINE HCL 200 MG/2 ML VIAL 100 MG IV PUSH (09:22)
[2024-03-26] MEDS: CYANOCOBALAMIN 1,000 MCG TABLET 2000 MCG PO (09:22)
[2024-03-26] MEDS: DEXTROSE 5%/0.9% SOD CHL 1,000 ML 100 ML IV CONT ×2 (10:41→22:42)
[2024-03-26 10:43] VITALS: O2SAT 96
--- NOTE | 2024-03-26 10:44 | PM.IMPN ---
Progress Note: A&P Assessment and Plan (1) Dementia: Qualifiers: Dementia behavioral or psychological symptom: without behavioral, psychotic, or mood disturbance or anxiety Dementia severity: severe Dementia type: Lewy body dementia Qualified Code(s): G31.83 - Neurocognitive disorder with Lewy bodies; F02.C0 - Dementia in other diseases classified elsewhere, severe, without behavioral disturbance, psychotic disturbance, mood disturbance, and anxiety Code(s): F03.90 - Unspecified dementia, unspecified severity, without behavioral disturbance, psychotic disturbance, mood disturbance, and anxiety Status: Acute (2) Altered mental status: Qualifiers: Altered mental status type: unspecified Qualified Code(s): R41.82 - Altered mental status, unspecified Code(s): R41.82 - Altered mental status, unspecified Status: Acute (3) Pruritic rash: Code(s): L28.2 - Other prurigo Status: Acute (4) Pneumonia: Qualifiers: Laterality: right Lung location: upper lobe of lung Pneumonia type: due to unspecified organism Qualified Code(s): J18.9 - Pneumonia, unspecified organism Code(s): J18.9 - Pneumonia, unspecified organism Status: Acute (5) Parkinsons disease: Qualifiers: Dyskinesia presence: with dyskinesia Fluctuating manifestations: unspecified whether manifestations fluctuate Qualified Code(s): G20.B1 - Parkinson's disease with dyskinesia, without mention of fluctuations Code(s): G20.A1 - Parkinson's disease without dyskinesia, without mention of fluctuations Status: Acute (6) Essential hypertension: Code(s): I10 - Essential (primary) hypertension Status: Acute Plan 79-year-old male with a past medical history of essential hypertension, Lewy body dementia, Parkinson's disease and depression with anxiety who presented to ER via EMS due to low-grade fever 100.1 [facility] the senior living and recent treatment for UTI. The patient had been evaluated in the ER on the for insomnia. Acute encephalopathy and delirium Patient does have Lewy by mention has been demonstrating behaviors with [facility] staff and being uncooperative. Currently he not causing over disruption but is restless. Patient has advanced dementia, but the patient was found confused worse than baseline upon arrival Possible acute encephalopathy superimposed with dementia, resulting from pneumonia, UTI, and dehydration, elevated BUN creatinine ratio 25/1 POA continue the patient's home Aricept and SSRI Treat underlying disease Neuro check Consult PT OT day care aide for evaluation and assisting placement Patient mental status is improving today, not agitated, still confusing Right lower lobe pneumonia X-ray showed right upper lobe pneumonia Received Levaquin IV, continue Levaquin Add doxy 100 mg q.12 hours IV Follow MRSA screening O2 therapy as needed to keep pulse ox above 92 UTI UA shows pyuria, and hematuria, negative nitrate Continue Levaquin IV Follow-up urine culture blood culture no growth so far Dehydration Received normal saline bolus in the ED Change [id number] saline IV 100 mL/hour to 75 mL per hour Hyperlipidemia Continue Crestor 5 mg daily p.o. Subjective Date/time seen: 03/26/24 10:44 Interval history: I saw and exam patient today, patient is alert, but still confused, patient does have obvious distress patient afebrile, blood pressure stable, Exam Narrative: GENERAL: Pleasant, in no acute distress. Well-nourished. - EYES: EOMI. Anicteric. - HENT: Moist mucous membranes. - LUNGS: Clear to auscultation bilaterally, no wheezing, rhonchi, or rales. - CARDIOVASCULAR: Regular rate and rhythm. No murmur. No JVD. - ABDOMEN: Soft, non-tender and non-distended. No palpable masses. - EXTREMITIES: No edema. Peripheral pulses 2+. Non-tender. - NEUROLOGIC: No focal neurological deficits. CN II-XII grossly intact. - P
[2024-03-26 11:11] LABS: Basophils Percent Auto 0.3 % (0.2-1.2); Eosinophils Absolute Auto 0.1 K/mm3 (0-0.3); Eosinophils Percent Auto 1.2 % (0-4.4); Hemoglobin 12.5 g/dL (14.0-18.0); Immature Granulocyte Absolute 0.01 K/mm3 (0.00-0.031); Immature Granulocyte Percent A 0.2 % (0-0.5); Lymphocytes Absolute Auto 0.51 K/mm3 (0.9-3.2); Lymphocytes Percent Auto 8.7 % (18.3-44.2); Mean Corpuscular HGB Conc 33.8 g/dl (32-36); Mean Corpuscular Hemoglobin 32.1 pg (26-34); Mean Corpuscular Volume 94.9 fl (80-100); Mean Platelet Volume 9.5 fl (7.4-10.4); Monocytes Absolute Auto 0.8 K/mm3 (0.1-0.6); Monocytes Percent Auto 13.5 % (2.6-8.5); Neutrophils Absolute Auto 4.5 K/mm3 (1.3-6.7); Neutrophils Percent Auto 76.1 % (45.5-73.1); Platelet Count Result 199 k/mm3 (150-375); Red Cell Distribution Width 13.4 % (11.5-14.5); White Blood Count 5.9 K/mm3 (4.5-10.0)
[2024-03-26 11:31] LABS: Anion Gap 5 mmol/L (4-12); Blood Urea Nitrogen 11 mg/dL (9-20); Calcium 8.6 mg/dL (8.4-10.2); Carbon Dioxide 25 mmol/L (22-30); Chloride 108 mmol/L (98-107); Estimated CRCL calculation 72 ml/min; Estimated Glomerular Filt Rate > 60; Glucose 114 mg/dL (65-110); Potassium 3.3 mmol/L (3.4-5.0); Sodium 138 mmol/L (137-145)
[2024-03-26 14:00] VITALS: BP 121/68; PULSE 60; RESP 18; TEMP 36.8; O2SAT 99
[2024-03-26 20:34] VITALS: BP 160/90; PULSE 91; RESP 16; TEMP 36.4; O2SAT 99
[2024-03-26] MEDS: ROSUVASTATIN 5 MG TABLET PO (20:36)
[2024-03-26] MEDS: levoFLOXacin 750 MG/D5W 150 ML 750 MG/150 ML BAG 100 MG IVPB (20:47)
--- NOTE | 2024-03-27 07:33 | PM.IMPN ---
Progress Note: A&P Assessment and Plan (1) Dementia: Qualifiers: Dementia behavioral or psychological symptom: without behavioral, psychotic, or mood disturbance or anxiety Dementia severity: severe Dementia type: Lewy body dementia Qualified Code(s): G31.83 - Neurocognitive disorder with Lewy bodies; F02.C0 - Dementia in other diseases classified elsewhere, severe, without behavioral disturbance, psychotic disturbance, mood disturbance, and anxiety Code(s): F03.90 - Unspecified dementia, unspecified severity, without behavioral disturbance, psychotic disturbance, mood disturbance, and anxiety Status: Acute (2) Altered mental status: Qualifiers: Altered mental status type: unspecified Qualified Code(s): R41.82 - Altered mental status, unspecified Code(s): R41.82 - Altered mental status, unspecified Status: Acute (3) Pruritic rash: Code(s): L28.2 - Other prurigo Status: Acute (4) Pneumonia: Qualifiers: Laterality: right Lung location: upper lobe of lung Pneumonia type: due to unspecified organism Qualified Code(s): J18.9 - Pneumonia, unspecified organism Code(s): J18.9 - Pneumonia, unspecified organism Status: Acute (5) Parkinsons disease: Qualifiers: Dyskinesia presence: with dyskinesia Fluctuating manifestations: unspecified whether manifestations fluctuate Qualified Code(s): G20.B1 - Parkinson's disease with dyskinesia, without mention of fluctuations Code(s): G20.A1 - Parkinson's disease without dyskinesia, without mention of fluctuations Status: Acute (6) Essential hypertension: Code(s): I10 - Essential (primary) hypertension Status: Acute Plan 79-year-old male with a past medical history of essential hypertension, Lewy body dementia, Parkinson's disease and depression with anxiety who presented to ER via EMS due to low-grade fever 100.1 at the al[facility] and recent treatment for UTI. The patient had been evaluated in the ER on the for insomnia. Acute encephalopathy and delirium Patient does have Lewy by mention has been demonstrating behaviors with [facility] staff and being uncooperative. Currently he not causing over disruption but is restless. Patient has advanced dementia, but the patient was found confused worse than baseline upon arrival Possible acute encephalopathy superimposed with dementia, resulting from pneumonia, UTI, and dehydration, elevated BUN creatinine ratio 25/1 POA continue the patient's home Aricept and SSRI Treat underlying disease Neuro check Consult PT OT intensive care anaesthetist for evaluation and assisting placement Patient mental status is improving today, not agitated, still confusing, possible to baseline, patient is able to speak S talking does not make any sense Right lower lobe pneumonia X-ray showed right upper lobe pneumonia Received Levaquin IV, continue Levaquin Add doxy 100 mg q.12 hours IV Follow MRSA screening O2 therapy as needed to keep pulse ox above 92 Change Augmentin 875 mg q.12 hours p.o.03/27 UTI UA shows pyuria, and hematuria, negative nitrate Continue Levaquin IV Follow-up urine culture blood culture no growth so far Dehydration Received normal saline bolus in the ED Change [id number] saline IV 100 mL/hour to 75 mL per hour dc iv fluid dehydration is corrected, patient is able to eat with feeding assist Hyperlipidemia Continue Crestor 5 mg daily p.o. Patient has a profound dementia, aggressive medical treatment will be futile, hospice care is option for patient care at this stage of life Subjective Date/time seen: 03/27/24 07:33 Interval history: I saw and exam patient today, patient is alert, but still confused, patient does have obvious distress patient afebrile, blood pressure stable, patient was able to eat with assisted feeding Exam Narrative: GENERAL: Pleasant, in no acute distress. Well-nourished. - EYES:
[2024-03-27 08:19] LABS: Basophils Percent Auto 0.3 % (0.2-1.2); Eosinophils Absolute Auto 0.1 K/mm3 (0-0.3); Eosinophils Percent Auto 1.1 % (0-4.4); Hematocrit 41.9 % (42.0-52.0); Hemoglobin 13.8 g/dL (14.0-18.0); Immature Granulocyte Absolute 0.03 K/mm3 (0.00-0.031); Immature Granulocyte Percent A 0.4 % (0-0.5); Lymphocytes Absolute Auto 0.83 K/mm3 (0.9-3.2); Lymphocytes Percent Auto 11.4 % (18.3-44.2); Mean Corpuscular HGB Conc 32.9 g/dl (32-36); Mean Corpuscular Hemoglobin 31.6 pg (26-34); Mean Corpuscular Volume 95.9 fl (80-100); Mean Platelet Volume 9.7 fl (7.4-10.4); Monocytes Absolute Auto 0.9 K/mm3 (0.1-0.6); Monocytes Percent Auto 12.4 % (2.6-8.5); Neutrophils Absolute Auto 5.4 K/mm3 (1.3-6.7); Neutrophils Percent Auto 74.4 % (45.5-73.1); Platelet Count Result 235 k/mm3 (150-375); Red Blood Count 4.37 M/mm3 (4.6-6.20); Red Cell Distribution Width 13.2 % (11.5-14.5); White Blood Count 7.3 K/mm3 (4.5-10.0)
[2024-03-27 08:25] LABS: Anion Gap 5 mmol/L (4-12); Blood Urea Nitrogen 8 mg/dL (9-20); Calcium 8.9 mg/dL (8.4-10.2); Carbon Dioxide 28 mmol/L (22-30); Chloride 104 mmol/L (98-107); Estimated CRCL calculation 72 ml/min; Estimated Glomerular Filt Rate > 60; Glucose 97 mg/dL (65-110); Magnesium 1.8 mg/dL (1.6-2.3); Phosphorus 3.3 mg/dL (2.5-4.5); Potassium 3.4 mmol/L (3.4-5.0); Sodium 137 mmol/L (137-145)
[2024-03-27] MEDS: ESCITALOPRAM OXALATE 5 MG TABLET PO (08:34)
[2024-03-27] MEDS: HEPARIN SODIUM 5,000 UNITS/ML VIAL 5000 UNITS SUB-Q ×2 (08:35→21:02)
[2024-03-27] MEDS: FOLIC ACID 1 MG/0.2 ML INJ IV PUSH (08:35)
[2024-03-27] MEDS: OLMESARTAN MEDOXOMIL 20 MG TABLET PO (08:35)
[2024-03-27] MEDS: THIAMINE HCL 200 MG/2 ML VIAL 100 MG IV PUSH (08:35)
[2024-03-27] MEDS: CYANOCOBALAMIN 1,000 MCG TABLET 2000 MCG PO (08:38)
[2024-03-27] MEDS: AMOXICILLIN/CLAVULANATE K 875-125 MG TAB 1 TABLET PO ×2 (11:01→20:59)
[2024-03-27 12:06] VITALS: BMI 18.3
[2024-03-27 14:05] VITALS: BP 150/96; PULSE 95; RESP 18; TEMP 36.1; O2SAT 97
[2024-03-27 20:03] VITALS: BP 158/89; PULSE 92; RESP 16; TEMP 36.3; O2SAT 98
[2024-03-27] MEDS: ROSUVASTATIN 5 MG TABLET PO (20:59)
[2024-03-27] MEDS: LORazepam INJ (*CRX) 2 MG/ML VIAL 0.5 MG IV PUSH (21:00)
[2024-03-28 04:49] LABS: Basophils Percent Auto 0.3 % (0.2-1.2); Eosinophils Absolute Auto 0.1 K/mm3 (0-0.3); Eosinophils Percent Auto 1.6 % (0-4.4); Hematocrit 40.3 % (42.0-52.0); Hemoglobin 13.5 g/dL (14.0-18.0); Immature Granulocyte Absolute 0.02 K/mm3 (0.00-0.031); Immature Granulocyte Percent A 0.3 % (0-0.5); Lymphocytes Percent Auto 15.6 % (18.3-44.2); Mean Corpuscular HGB Conc 33.5 g/dl (32-36); Mean Corpuscular Hemoglobin 31.7 pg (26-34); Mean Corpuscular Volume 94.6 fl (80-100); Mean Platelet Volume 9.6 fl (7.4-10.4); Monocytes Absolute Auto 0.8 K/mm3 (0.1-0.6); Monocytes Percent Auto 11.9 % (2.6-8.5); Neutrophils Absolute Auto 4.5 K/mm3 (1.3-6.7); Neutrophils Percent Auto 70.3 % (45.5-73.1); Platelet Count Result 226 k/mm3 (150-375); Red Blood Count 4.26 M/mm3 (4.6-6.20); Red Cell Distribution Width 13.5 % (11.5-14.5); White Blood Count 6.4 K/mm3 (4.5-10.0)
[2024-03-28 05:03] VITALS: BP 130/80; PULSE 60; RESP 17; TEMP 36.5; O2SAT 100
[2024-03-28 05:12] LABS: Anion Gap 4 mmol/L (4-12); Blood Urea Nitrogen 14 mg/dL (9-20); Calcium 8.9 mg/dL (8.4-10.2); Carbon Dioxide 28 mmol/L (22-30); Chloride 105 mmol/L (98-107); Estimated CRCL calculation 72 ml/min; Estimated Glomerular Filt Rate > 60; Glucose 91 mg/dL (65-110); Phosphorus 3.2 mg/dL (2.5-4.5); Potassium 3.5 mmol/L (3.4-5.0); Sodium 137 mmol/L (137-145)
[2024-03-28 09:33] VITALS: BP 130/96; PULSE 65
[2024-03-28] MEDS: CYANOCOBALAMIN 1,000 MCG TABLET 2000 MCG PO (09:35)
[2024-03-28] MEDS: THIAMINE HCL 200 MG/2 ML VIAL 100 MG IV PUSH (09:35)
[2024-03-28] MEDS: OLMESARTAN MEDOXOMIL 20 MG TABLET PO (09:35)
[2024-03-28] MEDS: ESCITALOPRAM OXALATE 5 MG TABLET PO (09:35)
[2024-03-28] MEDS: AMOXICILLIN/CLAVULANATE K 875-125 MG TAB 1 TABLET PO (09:35)
[2024-03-28] MEDS: HEPARIN SODIUM 5,000 UNITS/ML VIAL 5000 UNITS SUB-Q (09:36)
[2024-03-28] MEDS: FOLIC ACID 1 MG/0.2 ML INJ IV PUSH (09:36)
--- NOTE | 2024-03-28 10:17 | PM.IMPN ---
Progress Note: A&P Assessment and Plan (1) Dementia: Qualifiers: Dementia behavioral or psychological symptom: without behavioral, psychotic, or mood disturbance or anxiety Dementia severity: severe Dementia type: Lewy body dementia Qualified Code(s): G31.83 - Neurocognitive disorder with Lewy bodies; F02.C0 - Dementia in other diseases classified elsewhere, severe, without behavioral disturbance, psychotic disturbance, mood disturbance, and anxiety Code(s): F03.90 - Unspecified dementia, unspecified severity, without behavioral disturbance, psychotic disturbance, mood disturbance, and anxiety Status: Acute (2) Altered mental status: Qualifiers: Altered mental status type: unspecified Qualified Code(s): R41.82 - Altered mental status, unspecified Code(s): R41.82 - Altered mental status, unspecified Status: Acute (3) Pruritic rash: Code(s): L28.2 - Other prurigo Status: Acute (4) Pneumonia: Qualifiers: Laterality: right Lung location: upper lobe of lung Pneumonia type: due to unspecified organism Qualified Code(s): J18.9 - Pneumonia, unspecified organism Code(s): J18.9 - Pneumonia, unspecified organism Status: Acute (5) Parkinsons disease: Qualifiers: Dyskinesia presence: with dyskinesia Fluctuating manifestations: unspecified whether manifestations fluctuate Qualified Code(s): G20.B1 - Parkinson's disease with dyskinesia, without mention of fluctuations Code(s): G20.A1 - Parkinson's disease without dyskinesia, without mention of fluctuations Status: Acute (6) Essential hypertension: Code(s): I10 - Essential (primary) hypertension Status: Acute Plan 79-year-old male with a past medical history of essential hypertension, Lewy body dementia, Parkinson's disease and depression with anxiety who presented to ER via EMS [facility] for UTI. The patient had been evaluated in the ER on the for insomnia. Acute encephalopathy and delirium Patient does have Lewy by mention has been demonstrating behaviors with [facility] ER staff and being uncooperative. Currently he not causing over disruption but is restless. Patient has advanced dementia, but the patient was found confused worse than baseline upon arrival Possible acute encephalopathy superimposed with dementia, resulting from pneumonia, UTI, and dehydration, elevated BUN creatinine ratio 25/1 POA continue the patient's home Aricept and SSRI Treat underlying disease Neuro check Consult PT OT memory care program director for evaluation and assisting placement Patient mental status is improving today, not agitated, still confusing, possible to baseline, patient is able to speak, but his talking does not make any sense. delirium has resolved Right lower lobe pneumonia X-ray showed right upper lobe pneumonia Received Levaquin IV, continue Levaquin Add doxy 100 mg q.12 hours IV Follow MRSA screening O2 therapy as needed to keep pulse ox above 92 Change Augmentin 875 mg q.12 hours p.o.03/27 UTI UA shows pyuria, and hematuria, negative nitrate Continue Levaquin IV Follow-up urine culture blood culture no growth so far Dehydration Received normal saline bolus in the ED Change [id number] saline IV 100 mL/hour to 75 mL per hour dc iv fluid dehydration is corrected, patient is able to eat with feeding assist Hyperlipidemia Continue Crestor 5 mg daily p.o. Patient has a profound dementia, aggressive medical treatment will be futile, patient's support shortness sister request to transfer patient to hospice care today Subjective Date/time seen: 03/28/24 10:17 Interval history: Saw and examined the patient in presents of patient's sister patient's power of vial gauger. Patient was able to eat and drink with assisted feeding. No new issue even overnight, afebrile hemodynamically stable Exam Narr
--- NOTE | 2024-03-28 11:33 | PM.DS ---
DS: Admitting Diagnosis Discharge Date Admitting Diagnosis (1) Dementia: Qualifiers: Dementia behavioral or psychological symptom: without behavioral, psychotic, or mood disturbance or anxiety Dementia severity: severe Dementia type: Lewy body dementia Qualified Code(s): G31.83 - Neurocognitive disorder with Lewy bodies; F02.C0 - Dementia in other diseases classified elsewhere, severe, without behavioral disturbance, psychotic disturbance, mood disturbance, and anxiety Code(s): F03.90 - Unspecified dementia, unspecified severity, without behavioral disturbance, psychotic disturbance, mood disturbance, and anxiety Status: Acute (2) Altered mental status: Qualifiers: Altered mental status type: unspecified Qualified Code(s): R41.82 - Altered mental status, unspecified Code(s): R41.82 - Altered mental status, unspecified Status: Acute (3) Pruritic rash: Code(s): L28.2 - Other prurigo Status: Acute (4) Pneumonia: Qualifiers: Laterality: right Lung location: upper lobe of lung Pneumonia type: due to unspecified organism Qualified Code(s): J18.9 - Pneumonia, unspecified organism Code(s): J18.9 - Pneumonia, unspecified organism Status: Acute (5) Parkinsons disease: Qualifiers: Dyskinesia presence: with dyskinesia Fluctuating manifestations: unspecified whether manifestations fluctuate Qualified Code(s): G20.B1 - Parkinson's disease with dyskinesia, without mention of fluctuations Code(s): G20.A1 - Parkinson's disease without dyskinesia, without mention of fluctuations Status: Acute (6) Essential hypertension: Code(s): I10 - Essential (primary) hypertension Status: Acute DS: Discharge Diagnosis Discharge Diagnosis (1) Dementia: Qualifiers: Dementia behavioral or psychological symptom: without behavioral, psychotic, or mood disturbance or anxiety Dementia severity: severe Dementia type: Lewy body dementia Qualified Code(s): G31.83 - Neurocognitive disorder with Lewy bodies; F02.C0 - Dementia in other diseases classified elsewhere, severe, without behavioral disturbance, psychotic disturbance, mood disturbance, and anxiety Code(s): F03.90 - Unspecified dementia, unspecified severity, without behavioral disturbance, psychotic disturbance, mood disturbance, and anxiety Status: Acute (2) Altered mental status: Qualifiers: Altered mental status type: unspecified Qualified Code(s): R41.82 - Altered mental status, unspecified Code(s): R41.82 - Altered mental status, unspecified Status: Acute (3) Pruritic rash: Code(s): L28.2 - Other prurigo Status: Acute (4) Pneumonia: Qualifiers: Laterality: right Lung location: upper lobe of lung Pneumonia type: due to unspecified organism Qualified Code(s): J18.9 - Pneumonia, unspecified organism Code(s): J18.9 - Pneumonia, unspecified organism Status: Acute (5) Parkinsons disease: Qualifiers: Dyskinesia presence: with dyskinesia Fluctuating manifestations: unspecified whether manifestations fluctuate Qualified Code(s): G20.B1 - Parkinson's disease with dyskinesia, without mention of fluctuations Code(s): G20.A1 - Parkinson's disease without dyskinesia, without mention of fluctuations Status: Acute (6) Essential hypertension: Code(s): I10 - Essential (primary) hypertension Status: Acute DS: Summary Hospital Course Hospital Course: 79-year-old male with a past medical history of essential hypertension, Lewy body dementia, Parkinson's disease and depression with anxiety who presented to ER via EMS due to low-grade fever 100.1 at the assisted and recent treatment for UTI. The patient had been evaluated in the ER on the for insomnia. The following medical issues have been addressed during hospitalization Acute e
[2024-03-28 13:34] LABS: SARS-CoV-2 RNA PCR Negative (Negative)
--- NOTE | 2024-03-28 15:30 | P.CDI_ITS ---
CDI Query Clarification Request BMI 18.3 Nutritional Diagnostic Statement: Severe Protein Calorie Malnutrition as related to inadequate protein-energy intake with increased protein-energy needs in the setting of chronic disease or condition as evidenced by significant weight loss of 23%, (41 ibs) in 1 month; severe subcutaneous fat loss(orbital fat pads) and severe muscle wasting (temporalis). Please refer to the comprehensive nutrition assessment for further information. If you agree with the diagnosis of protein calorie malnutrition, please add to the problem list and specify severity of malnutrition if known: * Mild * Moderate * Severe * Other/Unknown <DARRICK Cruz - Last Filed: 03/28/24 15:31> Clarified Diagnosis Clarified Diagnosis: Moderate Malnutrition <Dallas Haley MD - Last Filed: 03/28/24 16:58>
[2024-03-29 18:58] LABS: Pneumococcal Antigen Urine NOT DETECTED
[2024-03-31 00:58] LABS: Legionella pneumophila Ag Ur NOT DETECTED
== END 2024-03-28 15:45 | disposition hospice, home (50) | DRG 194 ==
LOC: ANHED 22:12 → ANH2MED 22:45
PROVIDERS: Admitting Provider Internal Medicine; Emergency Provider Physician Assistant; Visit Provider Hospitalist
DX: J18.9 Pneumonia, unspecified organism (principal); E44.0 Moderate protein-calorie malnutrition; Z68.1 Body mass index [BMI] 19.9 or less, adult; N39.0 Urinary tract infection, site not specified; G31.83 Neurocognitive disorder with Lewy bodies; G20.A1 Parkinson's disease without dyskinesia, without mention of fluctuations; F02.80 Dementia in other diseases classified elsewhere, unspecified severity, without behavioral disturbance, psychotic disturbance, mood disturbance, and anxiety; E86.0 Dehydration; E53.8 Deficiency of other specified B group vitamins; E78.5 Hyperlipidemia, unspecified; F41.8 Other specified anxiety disorders; I10 Essential (primary) hypertension; L28.2 Other prurigo; Z85.828 Personal history of other malignant neoplasm of skin; Z20.822 Contact with and (suspected) exposure to COVID-19; Z11.52 Encounter for screening for COVID-19
CPT/HCPCS: 36415; 70450; 71045; 80048; 80053; 80307; 81001; 82550; 82948; 83605; 83735; 84100; 84443; 84484; 85025; 87040; 87086; 87449; 87635; 87636; 87899; 93005; 96374; 96375; 96376; 99285; A9270; G0378; J1644; J1956; J2060; J3411; J3480; J7030; J7040; J7042